=== PATIENT | female | born 1970 | race Caucasian/White ===

== ENCOUNTER 2017-11-19 14:48 | Emergency (ER) | payer OTHER ==
[2017-11-19] MEDS ORDERED: NA CHLORIDE 0.9% 1,000 ML ONE (15:46)
[2017-11-19 15:49] LABS: Absolute Lymphocytes (CBC) 0.8 K/uL (0.7-4.9); Absolute Monocytes 0.7 K/uL (0.1-1.3); Absolute Neutrophil 7.9 K/uL (1.8-8.0); Eosinophils % 1.2 % (0-4.4); Hematocrit 32.9 % (36.0-45.0); MCH 21.5 pg (27.0-35.0); MCV 69.2 fL (80-100); MPV 6.7 fL (7.6-11.3); Monocytes % 6.8 % (3.3-12.3); RBC Red Blood Cell Count 4.76 M/uL (3.86-4.86)
[2017-11-19 15:54] LABS: Protime INR 0.95
[2017-11-19 16:00] LABS: Bicarbonate 26 mEq/L (21-31); Glucose Level 110 mg/dL (65-120); Sodium Level 131 mEq/L (135-145)
[2017-11-19 16:06] LABS: ALT/SGPT 22 IU/L (10-60); AST/SGOT 27 IU/L (10-42); Albumin 4.1 g/dL (3.2-5.5); Alkaline Phosphatase 48 IU/L (42-121); BUN Blood Urea Nitrogen 10 mg/dL (6-20); Bilirubin Direct 0.1 mg/dL (0-0.2); Bilirubin Total 0.3 mg/dL (0.3-1.2); Protein, Total 7.2 g/dL (6.0-8.3)
[2017-11-19 16:08] LABS: Alcohol Serum/Plasma < 10 mg/dl; Salicylates Level < 4.0 mg/dl (<30)
[2017-11-19 16:11] LABS: Barbiturates NEGATIVE; Benzodiazepines NEGATIVE; Cocaine NEGATIVE; METHAMPHETAM NEGATIVE; Opiates NEGATIVE; Phencyclidine NEGATIVE; THC Cannibis NEGATIVE
[2017-11-19 16:46] LABS: Anisocytosis 1+; Blood Morphology Comment NOTED (NOT SEEN); Hypochromasia 1+; Platelet Estimate INCR; Poikilocytosis 1+; Urine White Blood Cell Casts OK
[2017-11-19 16:55] LABS: Urine Blood NEGATIVE (NEG); Urine Glucose NEGATIVE (NEG); Urine Protein NEGATIVE (NEG)
--- NOTE | 2017-11-19 19:20 | EDPHYS ---
Physician Documentation [facility] Name: Raymon Murray Age: 47 yrs Sex: Female : 1970 Arrival Date: 11/19/2017 Time: 14:52 Bed 26 Private MD: ED Physician Farzad Valdez HPI: 11/19 16:05 This 47 yrs old Female presents to ER via Ambulatory with complaints of rn Accidental Overdose. 16:05 The patient presents to the emergency department with a possible poisoning. Context: rn Method: the patient has a confirmed or suspected ingestion, Time: at 12:00, the OD/poisoning occurred at at home. Severity of symptoms: At their worst the symptoms were mild in the emergency department the symptoms are unchanged. The patient has experienced similar episodes in the past. Reports has addiction problem, took 20 coricidin at home, states as substitute to ETOH because is sober now, not suicidal, reports feels wired, threw up 1 time, no coingestion.. 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 - Social history:: Smoking status: Patient uses tobacco products, denies chronic smoking, but will smoke occasionally. - Family history:: not pertinent. - Hospitalizations: : No recent hospitalization is reported. ROS: 16:05 Constitutional: Negative for fever, chills, and weight loss, Eyes: Negative for injury, rn pain, redness, and discharge, Neck: Negative for injury, pain, and swelling, Cardiovascular: Negative for chest pain, palpitations, and edema, Respiratory: Negative for shortness of breath, cough, wheezing, and pleuritic chest pain, Abdomen/GI: Negative for abdominal pain, nausea, vomiting, diarrhea, and constipation, MS/Extremity: Negative for injury and deformity, Skin: Negative for injury, rash, and discoloration, Neuro: Negative for headache, weakness, numbness, tingling, and seizure. Exam: 16:05 Constitutional: This is a well developed, well nourished patient who is awake, alert, rn and in no acute distress. Head/Face: Normocephalic, atraumatic. Eyes: Pupils equal round and reactive to light, extra-ocular motions intact. Lids and lashes normal. Conjunctiva and sclera are non-icteric and not injected. Cornea within normal limits. Periorbital areas with no swelling, redness, or edema. Cardiovascular: Regular rate and rhythm with a normal S1 and S2. No gallops, murmurs, or rubs. Normal PMI, no JVD. No pulse deficits. Respiratory: Lungs have equal breath sounds bilaterally, clear to auscultation and percussion. No rales, rhonchi or wheezes noted. No increased work of breathing, no retractions or nasal flaring. Abdomen/GI: Soft, non-tender, with normal bowel sounds. No distension or tympany. No guarding or rebound. No evidence of tenderness throughout. Skin: Warm, dry with normal turgor. Normal color with no rashes, no lesions, and no evidence of cellulitis. MS/ Extremity: Pulses equal, no cyanosis. Neurovascular intact. Full, normal range of motion. Equal circumference. Neuro: Awake and alert, GCS 15, oriented to person, place, time, and situation. Cranial nerves II-XII grossly intact. Motor strength 5/5 in all extremities. Sensory grossly intact. Cerebellar exam normal. Normal gait. Vital Signs: 15:02 BP 139 / 92; Pulse 72; Resp 18; Temp 97.6; Pulse Ox 100% on R/A; Weight 63.5 kg; Height ph 5 ft. 3 in. (160.02 cm); Pain 0/10; 16:01 BP 140 / 87; Pulse 71; Resp 19; Pulse Ox 100% on R/A; Pain 0/10; ed1 17:00 BP 139 / 95; Pulse 70; Resp 17; Pulse Ox 97% on R/A; Pain 0/10; ed1 17:36 BP 130 / 81; Pulse 75; Resp 14; Pulse Ox 100% on R/A; Pain 0/10; ed1 18:21 BP 144 / 82; Pulse 75; Resp 15; Pulse Ox 100% on R/A; Pain 0/10; ed1 19:19 BP 131 / 78; Pulse 76; Resp 18; Pulse Ox 100% on R/A; Pain 0/10; ed1 15:02 Body Mass Index 24.80 (63.50 kg, 160.02 cm) ph MDM: 15:12 Patient medically screened. rn 19:17 Differential diagnosis: Ingestion/exposure to Coricidin. Data reviewed: vital signs, rn nurses notes, lab test result(s), EKG, and as a result, I will discharge patient. Counseling: I had a detailed discussion with the patient and/or guardian regarding: the historical points, exam findings, and any diagnostic results supporting the discharge/admit diagnosis, lab results, the need for outpatient follow up, to return to the emergency department if symptoms worsen or persist or if there are any questions or concerns that arise at home. Response to treatment: the patient's symptoms have mildly improved after treatment, and as a result, I will discharge patient. Special discussion: I discussed with the patient/guardian in detail that at this point there is no indication for admission to the hospital. It is understood, however, that if the symptoms persist or worsen the patient needs to return immediately for re-evaluation. 11/19 15:21 Order name: Acetaminophen; Complete Time: 16: rn 11/19 15:21 Order name: Basic Metabolic Panel; Complete Time: 16: rn 11/19 15:21 Order name: CBC with Diff; Complete Time: 16:54 rn 11/19 15:21 Order name: ETOH Level; Complete Time: 16: rn 11/19 15:21 Order name: Hepatic Function; Complete Time: 16: rn 11/19 15:21 Order name: PT-INR; Complete Time: 16: rn 11/19 15:21 Order name: Ptt, Activated; Complete Time: 16: rn 11/19 15:21 Order name: Salicylate; Complete Time: 16: rn 11/19 15:21 Order name: Urine Drug Screen; Complete Time: 16: rn 11/19 15:21 Order name: EKG; Complete Time: 15: rn 11/19 15:58 Order name: Urine Dipstick--Ancillary (enter results); Complete Time: 16:55 em1 11/19 15:58 Order name: Urine --Ancillary (enter results); Complete Time: 16:55 em 11/19 16:03 Order name: CBC Smear Scan; Complete Time: 16:54 EDMS 11/19 15:21 Order name: Urine Test (obtain specimen); Complete Time: 15:58 rn 11/19 15:21 Order name: EKG - Nurse/Tech; Complete Time: 15:37 rn 11/19 15:21 Order name: IV Saline Lock; Complete Time: 15:37 rn 11/19 15:21 Order name: Labs collected and sent; Complete Time: 15:37 rn 11/19 15:21 Order name: Urine Dipstick-Ancillary (obtain specimen); Complete Time: 15:58 rn Administered Medications: 16:02 Drug: NS 0.9% 1000 ml Route: IV; Rate: 1000 ml; Site: right antecubital; ed1 17:04 Follow up: IV Status: Completed infusion; IV Intake: 1000ml ed1 Disposition: 11/19/17 19:19 Discharged to Home. Impression: Side effects of coricidin. - Condition is Stable. - Discharge Instructions: Overdose, Accidental. - Medication Reconciliation Form, Thank You Letter, Antibiotic Education, Prescription Opioid Use form. - Follow up: Private Physician; When: As needed; Reason: Recheck today's complaints, Re-evaluation by your physician. - Problem is new. - Symptoms have improved. Signatures: Dispatcher [employer] EDMS Farzad Valdez MD MD rn Katie Ascencio, INFECTIOUS DISEASES PHYSICIAN INFECTIOUS DISEASES PHYSICIAN ed1 Maddy Hall RN RN ph Corrections: (The following items were deleted from the chart) 19:29 19:19 11/19/2017 19:19 Discharged to Home. Impression: Side effects of coricidin. ed1 Condition is Stable. Forms are Medication Reconciliation Form, Thank You Letter, Antibiotic Education, Prescription Opioid Use. Follow up: Private Physician; When: As needed; Reason: Recheck today's complaints, Re-evaluation by your physician. Problem is new. Symptoms have improved. rn
--- NOTE | 2017-11-19 19:20 | ER ---
Nurse's Notes [facility] Name: Raymon Murray Age: 47 yrs Sex: Female : 1970 Arrival Date: 11/19/2017 Time: 14:52 Bed 26 Private MD: Diagnosis: Side effects of coricidin Presentation: 11/19 14:59 Presenting complaint: Patient states: " I took about 20 Cloracedin to try to stay ph awake, now I'm feeling really wired." Pt reports taking pills at around 1200, denies suicide attempt, states, " I struggle w/ addiction problems but I was not trying to hurt myself." Pt reports dizziness and SOB, VSS in triage. Transition of care: patient was not received from another setting of care. Onset of symptoms was November 19, 2017. Initial Sepsis Screen: Does the patient meet any 2 criteria? No. Patient's initial sepsis screen is negative. Does the patient have a suspected source of infection? No. Patient's initial sepsis screen is negative. Care prior to arrival: None. 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 - Social history:: Smoking status: Patient uses tobacco products, denies chronic smoking, but will smoke occasionally. - Family history:: not pertinent. - Hospitalizations: : No recent hospitalization is reported. Screenin:16 Abuse screen: Denies threats or abuse. Denies injuries from another. Nutritional ed1 screening: No deficits noted. Tuberculosis screening: No symptoms or risk factors identified. Fall Risk None identified. Assessment: 15:14 General: Spoke with Fransico at the [facility] He stated "Symptoms ed1 will all depend what type of Coricidin she took. Basic tox work up will do. Initiate seizure precautions. If everything comes back okay after 6-8 hours she can be cleared for discharge.. 15:25 General: Appears in no apparent distress. comfortable, Behavior is calm, cooperative. ed1 Pain: Denies pain. Neuro: Level of Consciousness is awake, alert, obeys commands, Oriented to person, place, time, situation, Denies weakness blurred vision dizziness, headache. Cardiovascular: Denies chest pain, Heart tones S1 S2 present. Respiratory: Airway is patent Respiratory effort is even, unlabored, Respiratory pattern is regular, symmetrical, Breath sounds are clear bilaterally. Denies cough, shortness of breath. GI: No signs and/or symptoms were reported involving the gastrointestinal system. : No signs and/or symptoms were reported regarding the genitourinary system. EENT: No signs and/or symptoms were reported regarding the EENT system. Derm: Skin is pink, warm \\T\\ dry. Musculoskeletal: Circulation, motion, and sensation intact. Range of motion: intact in all extremities. 15:25 Reassessment: I agree with assessment completed by EVIE Wilson . aa5 16:01 Reassessment: Patient appears in no apparent distress at this time. Patient and/or ed1 family updated on plan of care and expected duration. Pain level reassessed. Patient is alert, oriented x 3, equal unlabored respirations, skin warm/dry/pink. Patient denies pain at this time. 17:00 Reassessment: Patient appears in no apparent distress at this time. No changes from ed1 previously documented assessment. Patient and/or family updated on plan of care and expected duration. Pain level reassessed. Patient is alert, oriented x 3, equal unlabored respirations, skin warm/dry/pink. Patient denies pain at this time. 17:36 Reassessment: Patient appears in no apparent distress at this time. No changes from ed1 previously documented assessment. Patient and/or family updated on plan of care and expected duration. Pain level reassessed. Patient is alert, oriented x 3, equal unlabored respirations, skin warm/dry/pink. Patient denies pain at this time. 18:21 Reassessment: Patient appears in no apparent distress at this time. No changes from ed1 previously documented assessment. Patient and/or family updated on plan of care and expected duration. Pain level reassessed. Patient is alert, oriented x 3, equal unlabored respirations, skin warm/dry/pink. Pt states "He (pointing to ) is ready to take me home." Spoke with Dr. Valdez and poison control recommended a 6-8 hour observation. Patient was advised that is she wanted to leave she would have to sign an AMA form. Pt agreed to stay and continue observation. Patient denies pain at this time. 19:19 Reassessment: Patient appears in no apparent distress at this time. Patient and/or ed1 family updated on plan of care and expected duration. Pain level reassessed. Patient is alert, oriented x 3, equal unlabored respirations, skin warm/dry/pink. Patient denies pain at this time. Vital Signs: 15:02 BP 139 / 92; Pulse 72; Resp 18; Temp 97.6; Pulse Ox 100% on R/A; Weight 63.5 kg; Height ph 5 ft. 3 in. (160.02 cm); Pain 0/10; 16:01 BP 140 / 87; Pulse 71; Resp 19; Pulse Ox 100% on R/A; Pain 0/10; ed1 17:00 BP 139 / 95; Pulse 70; Resp 17; Pulse Ox 97% on R/A; Pain 0/10; ed1 17:36 BP 130 / 81; Pulse 75; Resp 14; Pulse Ox 100% on R/A; Pain 0/10; ed1 18:21 BP 144 / 82; Pulse 75; Resp 15; Pulse Ox 100% on R/A; Pain 0/10; ed1 19:19 BP 131 / 78; Pulse 76; Resp 18; Pulse Ox 100% on R/A; Pain 0/10; ed1 15:02 Body Mass Index 24.80 (63.50 kg, 160.02 cm) ph ED Course: 14:52 Patient arrived in ED. mr 15:02 Triage completed. ph 15:03 Arm band placed on. ph 15:12 Farzad Valdez MD is Attending Physician. rn 15:12 Katie Ascencio LVN is Primary Nurse. ed1 15:15 Inserted saline lock: 20 gauge in right antecubital area, using aseptic technique. ed1 Blood collected. 15:16 Patient has correct armband on for positive identification. Placed in gown. Bed in low ed1 position. Call light in reach. 15:32 EKG done, by architectural technologist. reviewed by Farzad Valdez MD. sm3 19:28 No provider procedures requiring assistance completed. IV discontinued, intact, ed1 bleeding controlled, No redness/swelling at site. Pressure dressing applied. Administered Medications: 16:02 Drug: NS 0.9% 1000 ml Route: IV; Rate: 1000 ml; Site: right antecubital; ed1 17:04 Follow up: IV Status: Completed infusion; IV Intake: 1000ml ed1 Intake: 17:04 IV: 1000ml; Total: 1000ml. ed1 Outcome: 19:19 Discharge ordered by . rn 19:28 Discharged to home ambulatory. ed1 19:28 Condition: good 19:28 Discharge instructions given to patient, Instructed on discharge instructions, follow up and referral plans. Demonstrated understanding of instructions, follow-up care. 19:29 Patient left the ED. ed1 Signatures: Mary Cisneros mr Farzad Valdez MD MD rn Calderon, Audri RN RN aa5 Katie Ascencio LVN LVN ed1 Maddy Hall RN RN Lydia Doshi 3
--- NOTE | 2017-11-20 06:35 | EKG ---
Test Date: 2017-11-19 Test Time: 15:26:29 Spud Driller: CHRIS MEASUREMENT RESULTS: Intervals: Rate: 69 VA: 202 QRSD: 86 QT: 450 QTc: 482 [place]: P: 64 VA: 202 QRS: 44 T: 51 INTERPRETIVE STATEMENTS: Normal sinus rhythm Cannot rule out Anterior infarct, age undetermined Abnormal ECG No previous ECG available for comparison Electronically Signed On 11-20-17 06:34:47 CDT by Stanley Lopez
== END 2017-11-19 19:29 | disposition home or self-care (01) ==
LOC: ER 14:48
DX: T65.891A Toxic effect of other specified substances, accidental (unintentional), initial encounter (principal); Z72.0 Tobacco use
CPT/HCPCS: 36415; 80048; 80076; 80307; 80320; 80329; 81003; 81025; 85025; 85610; 85730; 93005; 96360; 99284; J7030

== ENCOUNTER 2021-07-14 15:41 | Emergency (ER) | payer BC, SELFPAY ==
--- OUTSIDE RECORDS SUMMARY | 2021-07-14 15:44 | XMS REPORT | Continuity of Care Document ---
:1970 Author Organization [facility] t Address [address] [place] [address] [address] [place] [address] Care Team Providers Name Role Phone Sinan MARINELLI Primary Care Physician DIANNE THOMPSON Attending Clinician Unavailable Brina Jeff MD Attending Clinician Dianne Rosales Attending Clinician Deni GAYTAN Attending Clinician Unavailable Deni Gaytan MD Attending Clinician Doctor Unassigned, Name Attending Clinician Unavailable Sinan MARINELLI Attending Clinician SINAN Attending Clinician Unavailable Payers Payer Name Policy Type Policy Number Effective Date Expiration Date S sundar [facility] [id number] 2018 00:00:00 Problems Condition Condition Condition Status Onset Resolution Last Treating Co mments Source Name Details Category Date Date Treatment Clinician Date Anxiety Anxiety Disease Active Univers 3-24 ity of 00:00: [address] Allergies, Adverse Reactions, Alerts Allergy Allergy Status Severity Reaction(s) Onset Inactive Treating Comm ents Source Name Type Date Date Clinician NO KNOWN Drug Active Univers ALLERGIE Class ity of S [facility] Social History Social Habit Start Date Stop Date Quantity Comments Source Exposure to Not sure [facility] SARS-CoV-2 [place] [facility] (event) [place] Tobacco use and 2020-09-29 2020-09-29 Never used Universit y of exposure 00:00:00 00:00:00 [facility] Alcohol intake 2020-09-29 2020-09-29 Ex-drinker [facility] 00:00:00 00:00:00 (finding) [facility] Sex Ass[birth year] Universit y of 00:00:00 00:00:00 [facility] Smoking Status Start Date Stop Date Source Unknown if ever smoked [facility] y [facility] Never smoker [facility] Medications Ordered Filled Start Stop Current Ordering Indication Dosage Frequency Signature Comments Components Source Medication Medication Date Date Medication? Clinician (SIG) Name Name NaCl 0.9% 2020-07- No 1000mL at 999 Uni vers (NS) bolus 2-12 12-12 mL/hr, ity of infusion 06:00: 07:00 1,000 mL, Ramos as 1,000 mL 00 :00 IV Medical Infusion, Branch ONCE, 1 dose, On 06/18/21 at 0000, STAT FLUoxetine Yes [id number] 40mg Take 1 U nivers 40 mg 3-24 capsule by ity of capsule 00:00: mouth [place] 00 daily. Medical Branch FLUoxetine Yes [id number] 40mg Take 1 U nivers 40 mg 3-24 capsule by ity of capsule 00:00: mouth [place] 00 daily. Medical Branch FLUoxetine Yes [id number] 40mg Take 1 U nivers 40 mg 3-24 capsule by ity of capsule 00:00: mouth [place] 00 daily. Medical Branch FLUoxetine Yes [id number] 40mg Take 1 U nivers 40 mg 3-24 capsule by ity of capsule 00:00: mouth [place] 00 daily. Medical Branch FLUoxetine Yes [id number] 40mg Take 1 U nivers 40 mg 3-24 capsule by ity of capsule 00:00: mouth [place] 00 daily. Medical Branch FLUoxetine Yes [id number] 40mg Take 1 U nivers 40 mg 3-24 capsule by ity of capsule 00:00: mouth [place] 00 daily. Medical Branch FLUoxetine Yes [id number] 40mg Take 1 U nivers 40 mg 3-24 capsule by ity of capsule 00:00: mouth [place] 00 daily. Medical Branch CELEXA 20 Yes one po Univer s MG ORAL TAB 706 qday ity of 00:00: [place] 00 Medical Branch CELEXA 20 2020- No one po Unive rs MG ORAL TAB 7 03-24 qday ity of 00:00: 00:00 [place] 00 :00 Medical Branch CELEXA 20 2007-0 2020- No one po Unive rs MG ORAL TAB 01-10 qday ity of 00:00: 00:00 [place] 00 :00 Medical [place] Immunizations Ordered Filled Immunization Date Status Comments Sourc e Immunization Name Name Twinrix (hep a/hep 2017-12-13 Completed Univer sity of b) 00:00:00 [facility] Twinrix (hep a/hep 2017-12-13 Completed Univer sity of b) 00:00:00 [facility] Twinrix (hep a/hep 2017-12-13 Completed Univer sity of b) 00:00:00 [facility] Twinrix (hep a/hep 2017-12-13 Completed Univer sity of b) 00:00:00 [facility] Twinrix (hep a/hep 2017-12-13 Completed Univer sity of b) 00:00:00 [facility] Twinrix (hep a/hep 2017-12-13 Completed Univer sity of b) 00:00:00 [facility] Twinrix (hep a/hep 2017-12-13 Completed Univer sity of b) 00:00:00 [facility] Twinrix (hep a/hep 2017-12-13 Completed Univer sity of b) 00:00:00 [facility] Vital Signs Vital Name Observation Time Observation Value Comments Source Systolic blood 2021-06-18 20:01:00 171 mm[Hg] Univer sity of pressure [facility] Diastolic blood 2021-06-18 20:01:00 96 mm[Hg] Unive rsity of pressure [facility] Heart rate 2021-06-18 20:01:00 86 /min General acute hospital Respiratory rate 2021-06-18 20:01:00 20 /min Univ ersity [facility] Oxygen saturation in 2021-06-18 12:30:00 96 /min [facility] Arterial blood by [facility] Pulse oximetry Branch Body weight 2021-06-18 04:12:00 68.04 kg General acute hospital BMI 2021-06-18 04:12:00 25.75 kg/m2 General acute hospital Body temperature 2021-06-18 04:12:00 36.11 María [facility] Body height 2021-06-18 04:12:00 162.6 cm Universi ty of [facility] Systolic blood 2020-09-29 18:36:00 131 mm[Hg] Univer sity of pressure [facility] Diastolic blood 2020-09-29 18:36:00 80 mm[Hg] Unive rsity of pressure [facility] Heart rate 2020-09-29 18:36:00 72 /min Universi ty of [facility] Body temperature 2020-09-29 18:36:00 36.78 María [facility] Respiratory rate 2020-09-29 18:36:00 18 /min [facility] Body height 2020-09-29 18:36:00 162.6 cm Universi ty [place] [facility] Body weight 2020-09-29 18:36:00 78.472 kg Universi [facility] BMI 2020-09-29 18:36:00 29.70 kg/m2 Universi ty [place] [facility] Heart rate 2020-09-28 19:27:00 66 /min Universi ty of [facility] Body weight 2020-09-28 19:27:00 78.472 kg [facility] Oxygen saturation in 2020-09-28 19:27:00 99 /min [facility] Arterial blood by [facility] Pulse oximetry Branch Procedures Procedure Date / Time Performing Clinician Source Performed ETHANOL 2021-06-18 15:15:00 Shawn Nath o f [facility] ETHANOL 2021-06-18 10:23:00 Anil Jeff [facility] URINE DRUG (IMMUNOASSAY) 2021-06-18 07:49:00 [facility] SCREEN URINALYSIS 2021-06-18 07:47:00 Anil Jeff [facility] HB ECG ROUTINE & RHYTHM 2021-06-18 04:50:47 Anil Jeff [facility] CREATINE KINASE 2021-06-18 04:42:00 Anil Jeff [facility] COMP. METABOLIC PANEL 2021-06-18 04:42:00 Anil Jeff [facility] ([id number]) Medical Branch SALICYLATE 2021-06-18 04:42:00 Anil Jeff [facility] ETHANOL 2021-06-18 04:42:00 Anil Jeff [facility] CBC WITH DIFF 2021-06-18 04:42:00 Anil Jeff [facility] COVID-19 (ID NOW RAPID 2021-06-18 04:42:00 Anil Jeff [facility] TESTING) Medical Branch US PELVIS COMPLETE WITH 2020-10-07 19:21:53 Tamanna Gaytan [facility] TRANSVAGINAL [facility] AUTHORIZATION TO RELEASE 2020-09-29 05:01:00 Doctor Unassigned, No [facility] PHI TO [facility] Name Medical Branch Encounters Start End Encounter Admission Attending Care Care Encounter Source Date/Time Date/Time Type Type Clinicians Facility Department ID 2021-06-17 2021-06-18 Emergency X Karl THOMPSON [facility] ERT [id number] Univers 22:08[facility]00 [facility]09[facility] 2021-06-17 2021-06-18 Emergency Anil Jeff [facility] [id number] Univers 22:08:00 14:09:00 Karl Thompson [place] [id number] [facility] [id number] [facility] [phone] [facility] 084 Branch 2021-01-03 2021-01-03 Outpatient R ADUM, [facility] [id number] Univers 13:00:00 13:00:00 [facility]AN[facility] [id number] [facility] 2021-01-03 2021-01-03 Outpatient R ADUM, [facility] [id number] Univers 13:00:00 13:00:00 [facility] 2020-10-19 2020-10-19 Outpatient ADUM, [facility] [id number] Univers 13:00:00 13:00:00 [facility]AN[facility] [id number] [facility] 2020-10-19 2020-10-19 Outpatient R AD, [facility] [id number] Univers 13:00:00 13:00:00 TAMANNA ity [facility] 2020-10-07 2020-10-07 Hospital [facility] [id number] Univers 13:00:00 23:59:00 Encounter Tamanna Cheema Mata [id number] [place] [phone] [facility] 806 [place] 2020-10-07 2020-10-07 Outpatient R AD, [facility] [id number] Univers 00:00:00 00:00:00 TAMANNA [id number] ity [facility] 2020-10-07 2020-10-07 Outpatient R AD, [facility] [id number] Univers 00:00:00 00:00:00 TAMANNA tipton [facility] 2020-09-29 2020-09-29 [facility] [id number] Univers 13:20:20 14:28:05 Visit Tamanna Deni [place] [id number] [phone] [place] [facility] 134 [facility] 2020-09-29 2020-09-29 Outpatient R AD, [facility] [id number] Univers 13:15:00 13:15:00 TAMANNA itjazz [facility] 2020-09-29 2020-09-29 Orders Doctor OLIVEIRA [id number] Univers 00:00:00 00:00:00 Only Unassigned, MARNI [id number] ity of [place] [facility] 4.2.7.2.686 [place] [id number] [facility] 009 [place] 2020-09-28 2020-09-28 Office [facility] [id number] Univers 14:19:47 15:16:53 Visit [facility] [id number] it y of [place] 4.2.7.2.686 [place] as Professio [phone] [place] dical [place] 044 [place] [address] [facility] 2020-09-28 2020-09-28 Outpatient R SINAN [facility] [id number] Univers 14:00:00 14:00:00 NATHAN tipton [facility] 2020-09-27 2020-09-27 Telephone Sinan [facility] [id number] Univers 00:00:00 00:00:00 [facility] [id number] it y [facility] [id number] [place] as Profkaroio [id number] [place] 044 [place] Office [address] [facility] Results Test Description Test Time Test Comments Results Result Comments Source ETHANOL 2021-06-18 16:10:43 Test Item Value Reference Range Interpretation Comme nts ALCOHOL (test code = 5045645413) 100 mg/dL DALTON (test code = DALTON) <10 Daalnkab83-483 Toxic>100 Depression 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>400 Fatalities Reported [place] [facility] 10:54:03 Test Item Value Reference Range Interpretation Comments ALCOHOL (test code = 250 mg/dL 2859506100) DALTON (test code = DALTON) <10 Ubliygdv38-389 Toxic>100 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 Analgesic and Antipyretic Use ? 20-100 mg/L ? ? Anti-Inflammatory Use ? 100-250 mg/L Toxic Range: ? Greater than 300 mg/L [facility]2021-[facility]-12 05:05:24 Test Item Value Reference Range Interpretation Comments ACETAMINOP (test code = <10.0 10.0-30.0 L 6709792616) DALTON (test code = DALTON) Toxic: Greater than 200 ug/mL @ 4 hour post ingestion or greater than 50 ug/mL @ 12 hour post ingestion Lab Interpretation (test Abnormal code = 70531-9) [facility]. METABOLIC PANEL (52908)2021-06-18 05:03:59 Test Item Value Reference Range Interpretation Comments NA (test code = 141 mmol/L 135-145 0796457659) K (test code = 4.3 mmol/L 3.5-5.0 8209506039) CL (test code = 110 mmol/L 98-108 H 6853009468) CO2 TOTAL (test code = 23 mmol/L 23-31 2969414014) AGAP (test code = 2-16 6826491794) BUN (test code = 14 mg/dL 7-23 3087491586) GLUCOSE (test code = 112 mg/dL 70-110 H 5781002635) CREATININE (test code = 0.78 mg/dL 0.50-1.04 9636964912) TOTAL BILI (test code = 0.3 mg/dL 0.1-1.1 0959308018) CALCIUM (test code = 8.7 mg/dL 8.6-10.6 9686259376) T PROTEIN (test code = 6.6 g/dL 6.3-8.2 4576279810) ALBUMIN (test code = 3.9 g/dL 3.5-5.0 4658425310) ALK PHOS (test code = 59 U/L 34-122 6365711459) ALTv (test code = 15 U/L 5-35 1742-6) AST(SGOT) (test code = 36 U/L 13-40 3373680494) eGFR (test code = mL/min/1.73m2 5940178742) DALTON (test code = DALTON) Association of Glomerular Filtration Rate (GFR) and Staging of Kidney Disease* + --+ --+ ------+| GFR (mL/min/1.73 m2) ?| With Kidney Damage ?| ?Without Kidney Damage+ --------+ --------+ +| ?>90 ?| ?Stage one ?| ? Normal ?+ ---+ ---+ -------+| ?60-89 ?| ?Stage two ?| ? Decreased GFR ? + --+ --+ ------+| ?30-59 ?| ?Stage three ?| ? Stage three ? + --+ --+ ------+| ?15-29 ?| ?Stage four ? | ? Stage four ?+ ---+ ---+ -------+| ?<15 (or dialysis) ? ?| ?Stage five ? | ? Stage five ?+ ---+ ---+ -------+ *Each stage assumes the associated GFR level has been in effect for at least three months. ?Stages 1 to 5, with or without kidney disease, indicate chronic kidney disease. Notes: Determination of stages one and two (with eGFR >59mL/min/1.73 m2) requires estimation of kidney damage for at least three months as defined by structural or functional abnormalities of the kidney, manifested by either:Pathological abnormalities or Markers of kidney damage (including abnormalities in the composition of the blood or urine or abnormalities in imaging tests). Lab Interpretation Abnormal (test code = 73768-4) [place] [facility] [id number] 05:03:59 Test Item Value Reference Range Interpretation Comments CK (test code = 0660388215) 78 U/L 33-194 Lab Interpretation (test code = Normal 94435-5) [facility] WITH [id number] 05:03:39 Test Item Value Reference Range Interpretation Comments WBC (test code = See_Comment L [Automated 6690-2) message] The sy stem which generated this result transmitted reference range : 4.30 - 11.10 10*3/?L. The reference range was not used to interpret this result as normal/abnormal . RBC (test code = See_Comment L [Automated 9-8) message] The sy stem which generated this result transmitted reference range : 3.93 - 5.25 10*6/?L. The reference range was not used to interpret this result as normal/abnormal . HGB (test code = 8.7 g/dL 11.6-15.0 L 718-7) HCT (test code = 27.8 % 35.7-45.2 L 4544-3) MCV (test code = 76.2 fL 80.6-95.5 L 787-2) MCH (test code = 23.8 pg 25.9-32.8 L 785-6) MCHC (test code = 31.3 g/dL 31.6-35.1 L 786-4) RDW-SD (test code = 45.9 fL 39.0-49.9 79470-3) RDW-CV (test code = 16.6 % 12.0-15.5 H 788-0) PLT (test code = See_Comment [Automated 777-3) message] The sy stem which generated this result transmitted reference range : 166 - 358 10*3/ ?L. The reference r tawana was not used to interpret this result as normal/abnormal . MPV (test code = 8.1 fL 9.5-12.9 L 35264-8) NRBC/100 WBC (test See_Comment [Automat ed code = 5753008459) message] The system which generated this result transmitted reference range : 0.0 - 10.0 /100 WBCs. The refer ence range was not u sed to interpret th is result as normal/abnormal . NRBC x10^3 (test code <0.01 See_Comment [Auto mated = 8800291495) message] The s ystem which generated this result transmitted reference range : 10*3/?L. The reference range was not used to interpret this result as normal/abnormal . GRAN MAT (NEUT) % 36.9 % (test code = 770-8) IMM GRAN % (test code 0.30 % = 0765433389) LYMPH % (test code = 42.2 % 736-9) MONO % (test code = 12.7 % 5905-5) EOS % (test code = 5.9 % 713-8) BASO % (test code = 2.0 % 706-2) GRAN MAT x10^3(ANC) 1.13 10*3/uL 1.88-7.09 L (test code = 9970700806) IMM GRAN x10^3 (test <0.03 0.00-0.06 code = 5336297708) LYMPH x10^3 (test code 1.29 10*3/uL 1.32-3.29 L = 731-0) MONO x10^3 (test code 0.39 10*3/uL 0.33-0.92 = 742-7) EOS x10^3 (test code = 0.18 10*3/uL 0.03-0.39 711-2) BASO x10^3 (test code 0.06 10*3/uL 0.01-0.07 = 704-7) Lab Interpretation Abnormal (test code = 13780-8) [facility]"
[2021-07-14] MEDS ORDERED: LORazepam 2 MG/ML VIAL ONE (16:26)
[2021-07-14] MEDS ORDERED: LIDOCAINE 1% W/EPI 1:100,000 MDV 20 ML VIAL ONE (17:13)
[2021-07-14 17:23] LABS: Protime INR 0.94
[2021-07-14 17:41] LABS: ALT/SGPT 21 U/L (12-78); AST/SGOT 17 U/L (15-37); Albumin 3.3 g/dL (3.4-5.0); Alkaline Phosphatase 82 U/L (45-117); BUN Blood Urea Nitrogen 8 mg/dL (7-18); Bicarbonate 26 mmol/L (21-32); Bilirubin Direct < 0.1 mg/dL (0-0.2); Bilirubin Total 0.1 mg/dL (0.2-1.0); Glucose Level 107 mg/dL (74-106); Potassium 4.2 mmol/L (3.5-5.1); Sodium Level 137 mmol/L (136-145)
[2021-07-14 18:45] LABS: Absolute Lymphocytes (CBC) 1.4 K/uL (0.7-4.9); Hematocrit 27.6 % (36.0-45.0); Lymphocytes % 35.4 % (15.3-44.8); RBC Red Blood Cell Count 3.66 M/uL (3.86-4.86)
[2021-07-14 19:07] LABS: Blood Morphology Comment NOT SEEN (NOT SEEN); Platelet Estimate INCR; White Blood Cell Scan OK (OK)
[2021-07-14] MEDS ORDERED: TETANUS & DIPHTHERIA TOX,ADULT 0.5 ML VIAL ONE (22:25)
[2021-07-14] MEDS ORDERED: THIAMINE 200 MG/2 ML INJ ONE (22:44)
[2021-07-14] MEDS ORDERED: MULTIVITAMINS 10 ML VIAL (INJ) IV ONE (22:44)
[2021-07-14] MEDS ORDERED: NA CHLORIDE 0.9% 1,000 ML ONE (22:46)
[2021-07-14] MEDS ORDERED: IBUPROFEN 400 MG TAB ONE (23:56)
[2021-07-15 00:06] LABS: Urine Blood 2+ (Negative); Urine Glucose Negative (Negative); Urine Protein Negative (Negative); Urine Specific Gravity >=1.030 (1.005-1.030)
[2021-07-15 00:35] LABS: Barbiturates NEGATIVE (NEGATIVE); Benzodiazepines NEGATIVE (NEGATIVE); Cocaine NEGATIVE (NEGATIVE); METHAMPHETAM NEGATIVE (NEGATIVE); Methadone NEGATIVE (NEGATIVE); Opiates NEGATIVE (NEGATIVE); Phencyclidine NEGATIVE (NEGATIVE); THC Cannibis NEGATIVE (NEGATIVE)
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
--- NOTE | 2021-07-15 07:34 | EDPHYS ---
Physician Documentation [facility] Name: Raymon Murray Age: 51 yrs Sex: Female : 1970 Arrival Date: 07/14/2021 Time: 15:48 Bed 16 Private MD: ED Physician Cam Reed HPI: 07/14 16:05 This 51 yrs old Female presents to ER via Law Enforcement with complaints of Psych cp Problem. 16:05 The patient presents to the emergency department with self inflicted cuts to volar side cp left distal forearm. 16:05 Onset: The symptoms/episode began/occurred today. Patient brought to ED accompanied by cp law enforcement with concern for suicidal ideations. Patient currently on emergency senior care. Officer reports [employer] were called to patient's home for health and welfare check and while performing check, patient reported cut left distal forearm repeatedly. Patient currently denies any suicidal and/or homicidal ideation. Patient reports she has cut herself in the past and reports recently filed for divorce. 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 - Social history:: Smoking status: Patient denies any tobacco usage or history of. Patient/guardian denies using alcohol, street drugs, Denies ETOH, but patient does smell of ETOH. ROS: 16:10 Cardiovascular: Negative for chest pain. cp 16:10 Constitutional: Negative for fever. cp 16:10 Respiratory: Negative for cough, shortness of breath, wheezing. 16:10 Abdomen/GI: Negative for abdominal pain, nausea, vomiting, and diarrhea. 16:10 Skin: Positive for laceration(s), of the volar side distal left forearm. 16:10 Neuro: Negative for altered mental status, headache, weakness. 16:10 Psych: Negative for auditory hallucinations, visual hallucinations, homicidal ideation, suicidal ideation. 16:10 All other systems are negative. 07/15 07:37 Constitutional: Negative for fever, chills, and weight loss. kdr Exam: 07/14 16:15 Constitutional: The patient appears in no acute distress, alert, awake, non-toxic, well cp developed, well nourished. 16:15 Head/Face: Normocephalic, atraumatic. cp 16:15 Eyes: Periorbital structures: appear normal, Pupils: equal, round, and reactive to light and accomodation, Extraocular movements: intact throughout, Conjunctiva: normal, no exudate, no injection, Sclera: no appreciated abnormality, Lids and lashes: appear normal, bilaterally. 16:15 ENT: External ear(s): are unremarkable, Nose: is normal, Mouth: Lips: moist, Oral mucosa: moist, Posterior pharynx: Airway: no evidence of obstruction, patent. 16:15 Neck: ROM/movement: is normal, is supple, without pain, no range of motions limitations. 16:15 Chest/axilla: Inspection: normal. 16:15 Cardiovascular: Rate: normal, Rhythm: regular. 16:15 Respiratory: the patient does not display signs of respiratory distress, Respirations: normal, no use of accessory muscles, no retractions, labored breathing, is not present, Breath sounds: are clear throughout, no decreased breath sounds, no stridor, no wheezing. 16:15 Abdomen/GI: Exam negative for discomfort, distension, guarding, Inspection: abdomen appears normal. 16:15 Skin: injury, laceration(s), the wound is approximately 5 cm(s), of the volar aspect of distal left forearm, that can be described as no foreign body, linear, without bleeding. 16:15 Neuro: Orientation: to person, place \T\ time. Mentation: able to follow commands, Motor: moves all fours, strength is normal, Gait: is steady. 16:15 Psych: Behavior/mood is cooperative, Judgement / Insight is impaired. Delusions/hallucinations are not present. 18:49 ECG was reviewed by the Attending Physician. cp Vital Signs: 15:55 BP 141 / 100; Resp 18; Height 5 ft. 4 in. (162.56 cm); Pain 0/10; ss 16:24 Pulse 89; Resp 18; Temp 97.7(O); Pulse Ox 97% on R/A; Pain 0/10; ab2 07/15 03:43 BP 158 / 84; Pulse 85; Resp 16; Pulse Ox 100% on R/A; Pain 0/10; kd3 Laceration: 07/14 17:46 Wound Repair of 5cm ( 2.0in ) subcutaneous laceration to volar aspect of left distal cp forearm. Linear shaped.. Distal neuro/vascular/tendon intact. Anesthesia: Wound infiltrated with 4 mls of 1% lidocaine w/ Epi. Wound prep: Simple cleansing by me, Wound irrigation by me. Skin closed with 5 4-0 Prolene using interrupted sutures and sterile technique. Dressed with Bacitracin, 4x4's, Kerlix. Patient tolerated well. MDM: 15:57 Patient medically screened. cp 17:00 Differential diagnosis: drug withdrawal. acute psychotic break, depression, psychosis cp secondary to non-compliance. 07/15 03:00 Data reviewed: vital signs, nurses notes, lab test result(s), EKG. cp 03:00 Test interpretation: by ED physician or midlevel provider: ECG. ED course: Patient cp sleeping in exam room. Will repeat ETOH level and reassess for suicidal ideations. 06:41 ED course: Continues to be stable in the ED. She has not required any intervention over kdr the evening beyond the initial dressing of her wounds. She states unequivocally that she is not going to harm herself. She states that she has had a long history with alcohol abuse and and that when she binge drinks she gets depressed given her current circumstances and the divorce that is in process. She denies any current plan for self-harm. Additionally she states that family members are present in her home environment to provide some oversight of her behavior going forward.. 06:47 ED course: [facility] was consulted -awaiting their interaction and summary. kdr 07:34 ED course: I received signout from Dr. reed, as mild depression, alcohol kdr intoxication, pending [employer] evaluation likely discharge. .[facility] patient, they recommend outpatient management, low risk depression. Sad person, patient has support at home. She was intoxicated with alcohol, sober at this time ANO x4. . 07/14 15:59 Order name: Acetaminophen; Complete Time: 18:15 cp 07/14 15:59 Order name: Basic Metabolic Panel; Complete Time: 18:15 cp 07/14 18:15 Interpretation: Normal except: GLUC 107. cp 07/14 15:59 Order name: CBC with Diff; Complete Time: 23:59 cp 07/14 23:59 Interpretation: Normal except: WBC 3.90; RBC 3.66; HGB 8.3; HCT 27.6; MCV 75.4; MCH cp 22.7; MCHC 30.1; PLT 499; RDW 21.5; MPV 6.0. 07/14 15:59 Order name: ETOH Level; Complete Time: 18:15 cp 07/14 18:15 Interpretation: Abnormal: ETOH 348. cp 07/14 15:59 Order name: Hepatic Function; Complete Time: 18:15 cp 07/14 15:59 Order name: PT-INR; Complete Time: 18:15 cp 07/14 15:59 Order name: Ptt, Activated; Complete Time: 18:15 cp 07/14 15:59 Order name: Salicylate; Complete Time: 18:15 cp 07/14 15:59 Order name: Urine Drug Screen; Complete Time: 01:28 cp 07/15 01:28 Interpretation: Reviewed. 07/14 19:07 Order name: CBC Smear Scan; Complete Time: 23:59 EDMS 07/15 00:06 Order name: Urine Dipstick-Ancillary; Complete Time: 01:28 EDMS 07/15 00:09 Order name: Urine --Ancillary (enter results); Complete Time: 01:28 cs9 07/15 00:09 Order name: Urine Dipstick-Ancillary EDRI 07/14 15:59 Order name: EKG; Complete Time: 16:00 cp 07/14 15:59 Order name: EKG - Nurse/Tech 07/14 15:59 Order name: IV Saline Lock; Complete Time: 23:07 07/14 15:59 Order name: Labs collected and sent; Complete Time: 16:22 cp 07/14 15:59 Order name: Suicide Precautions; Complete Time: 17:12 cp 07/14 15:59 Order name: Suicide Screening ([place]); Complete Time: 17:12 cp 07/14 15:59 Order name: Urine Dipstick-Ancillary (obtain specimen); Complete Time: 00:08 cp 07/14 15:59 Order name: Urine Test (obtain specimen); Complete Time: 00:09 07/14 15:59 Order name: Wound dressing; Complete Time: 17:12 cp 07/14 16:37 Order name: Labs - recollect needed: recollect blue and gree top; Complete Time: 17:18 eb 07/15 01:44 Order name: ETOH Level; Complete Time: 06:15 cs9 07/14 16:55 Order name: Labs - recollect needed: recollect all the blood hemolyzed; Complete Time: eb 19:03 EC/07 18:49 Rate is 103 beats/min. Rhythm is regular. TN interval is normal. QRS interval is cp normal. QT interval is normal. T waves are Inverted in lead aVR. Interpreted by me. Reviewed by me. Administered Medications: 16:00 Drug: Ativan (LORazepam) 1 mg Route: IM; Site: right gluteus; hardin 17:51 Follow up: Response: No adverse reaction hardin 19:03 Follow up: Response: No adverse reaction hardin 17:50 Drug: Lidocaine-Epinephrine -1%: (1:100,000) 10 ml Volume: 20 ml; Route: Infiltration; hardin 22:39 Drug: Tetanus-Diphtheria Toxoid Adult 0.5 ml {Glaciologist: Shut Down. Exp: kd3 11/25/2022. Lot #: [id number]. } Route: IM; Site: left deltoid; 22:48 Drug: Banana Bag - (NS 0.9% 1000 ml, foLIC Acid 1 mg, Thiamine 100 mg, Multivitamin 1 kd3 amp) Route: IV; Rate: 125 ml/hr; Site: right hand; 07/15 00:08 Drug: Ibuprofen 800 mg Route: PO; kd3 Disposition: 06:41 Co-signature as Attending Physician, Cam Reed MD I agree with the assessment and kdr plan of care. Disposition Summary: 07/15/21 07:34 Discharge Ordered Location: Home kdr Condition: Stable kdr Diagnosis - Alcohol use, unspecified with intoxication kdr Followup: kdr - With: Private Physician - When: Tomorrow - Reason: If symptoms return Discharge Instructions: - Discharge Summary Sheet kdr - Alcohol Intoxication, [id number] kdr Forms: - Medication Reconciliation Form kdr - Thank You Letter kdr - Antibiotic Education kdr - Prescription Opioid Use kdr Signatures: Dispatcher [employer] EDRI Cam Reed MD MD kdr Millie Lemus RN RN ss Page, Corey, PA PA cp Botello, Elizabeth eb Doucette, Kyli, RN RN kd3 Zeinab-Stager, Hayley, RN RN hardin
[2021-07-15 09:15] VITALS: TEMP 97.7
[2021-07-15 09:17] VITALS: BP 158/84; O2SAT 100
--- NOTE | 2021-07-15 13:48 | EKG ---
Test Date: 2021-07-14 Test Time: 18:36:59 Glassware Maker: LETICIA MEASUREMENT RESULTS: Intervals: Rate: 103 AR: 184 QRSD: 66 QT: 342 QTc: 448 [place]: P: 66 AR: 184 QRS: 38 T: 63 INTERPRETIVE STATEMENTS: Sinus tachycardia Anteroseptal infarct, age undetermined Abnormal ECG Compared to ECG 11/19/2017 15:26:29 Sinus rhythm no longer present Myocardial infarct finding still present Electronically Signed On 07-15-21 13:47:33 LEATHERSMITH by Dave Bradford
== END 2021-07-15 08:56 | disposition home or self-care (01) ==
LOC: ER 15:41
PROC: 0JQH0ZZ Repair Left Lower Arm Subcutaneous Tissue and Fascia, Open Approach (ICD-10-PCS; principal; 2021-07-14)
DX: S51.812A Laceration without foreign body of left forearm, initial encounter (principal); X78.9XXA Intentional self-harm by unspecified sharp object, initial encounter; F10.929 Alcohol use, unspecified with intoxication, unspecified; Y92.009 Unspecified place in unspecified non-institutional (private) residence as the place of occurrence of the external cause; Z23 Encounter for immunization
CPT/HCPCS: 93005; 85025; 80048; 36415 ×2; 80320 ×2; 80329 ×2; 81025; 85610; 80076; 85730; 81003; 80307; 90471; 90714; 96372; 96374; 99284; 12002; J3411; J7030